=== PATIENT | female | born 1980 | race Caucasian/White ===

== ENCOUNTER 2016-12-21 04:59 | Outpatient (CLI) | payer OTHER ==
[2016-12-21 06:01] LABS: HEMATOCRIT 29.4 % (34.6-47.8); WHITE BLOOD COUNT 11.6 x10^3/uL (3.4-10)
== END 2016-12-21 06:59 | disposition home or self-care (01) ==
LOC: LDOP 04:59
PROVIDERS: ATTEND Obstetrics & Gynecology
DX: O26.892 Other specified pregnancy related conditions, second trimester (principal); O62.9 Abnormality of forces of labor, unspecified; R10.9 Unspecified abdominal pain; Z3A.27 27 weeks gestation of pregnancy
CPT/HCPCS: 36415; 59025; 81003; 85025; 87086; 99211; G0463

== ENCOUNTER 2017-02-09 12:46 | Observation (INO) | payer OTHER ==
[~2017-02-09] VITALS: Ht 165.1 cm; Wt 78.0 kg
[2017-02-09] MEDS ORDERED: D5%-LACTATED RINGERS 1,000 ML IV SCH ×4 (13:30→21:00)
[2017-02-09] MEDS ORDERED: ONDANSETRON 2MG/ML, 2ML IVPush PRN (13:30)
[2017-02-09] MEDS ORDERED: ONDANSETRON 2MG/ML, 2ML ONE (13:31)
[2017-02-09] MEDS ORDERED: PLEASE ENTER HEIGHT AND WEIGHT MC SCH (14:00)
[2017-02-09] MEDS: LACTATED RINGERS 1,000 ML IV SCH ×2 (14:30→18:34)
[2017-02-09 15:32] VITALS: BP 111/62
[2017-02-09] MEDS ORDERED: PROMETHAZINE 25 MG/ML, 1ML ONE (16:34)
[2017-02-09] MEDS ORDERED: LACTATED RINGERS 1,000 ML IV SCH (17:00)
[2017-02-09] MEDS ORDERED: PROMETHAZINE 25 MG/ML, 1ML IM ONE (17:00)
[2017-02-09 19:18] LABS: HEMATOCRIT 23.9 % (34.6-47.8); HEMOGLOBIN 7.9 g/dL (11.7-16.4); WHITE BLOOD COUNT 8.1 x10^3/uL (3.4-10)
[2017-02-09 19:30] LABS: ASPARTATE AMINO TRANSFERASE 8 U/L (15-37); BLOOD UREA NITROGEN 7 mg/dL (7-18)
[2017-02-10 06:00] LABS: HEMATOCRIT 23.8 % (34.6-47.8); WHITE BLOOD COUNT 6.9 x10^3/uL (3.4-10)
[2017-02-10 06:23] LABS: ASPARTATE AMINO TRANSFERASE 10 U/L (15-37); BLOOD UREA NITROGEN 8 mg/dL (7-18); TOTAL IRON BINDING CAPACITY 523 mcg/dL (250-450)
[2017-02-10 09:26] VITALS: BP 95/51
[2017-02-10] MEDS ORDERED: D5%-LACTATED RINGERS 1,000 ML IV SCH (13:30)
== END 2017-02-10 10:00 | disposition home or self-care (01) ==
LOC: LDOP 12:46 → LDIP 16:41
PROVIDERS: ADMIT Obstetrics & Gynecology; ATTEND Obstetrics & Gynecology
DX: O21.2 Late vomiting of pregnancy (principal); O76 Abnormality in fetal heart rate and rhythm complicating labor and delivery; O99.013 Anemia complicating pregnancy, third trimester; Z3A.34 34 weeks gestation of pregnancy
CPT/HCPCS: 36415; 59025; 76819; 80053; 81003; 82009; 83540; 83550; 85025; 87086; 96361; 96374; G0378; J2405; J7120; J7121

== ENCOUNTER 2017-03-12 05:42 | Inpatient (IN) | payer OTHER ==
[~2017-03-12] VITALS: Ht 162.6 cm; Wt 78.0 kg
[2017-03-12] MEDS ORDERED: LACTATED RINGERS 1,000 ML IV SCH ×3 (05:43→07:35)
[2017-03-12] MEDS ORDERED: OXYTOCIN 30U/ 0.9% NaCL 500ML 500 ML IV SCH (05:43)
[2017-03-12 05:44] VITALS: BP 99/65
[2017-03-12] MEDS ORDERED: PREN-3 PO (05:51)
[2017-03-12] MEDS ORDERED: RANI75TA12 PO (05:52)
[2017-03-12] MEDS ORDERED: IRON1TAB60 PO (05:52)
[2017-03-12] MEDS ORDERED: LACTATED RINGERS 1,000 ML IVBOLUS ONE (06:00)
[2017-03-12] MEDS ORDERED: METOCLOPRAMIDE 5 MG/ML, 2ML IV ONE (06:00)
[2017-03-12] MEDS ORDERED: PNEUMOCOCCAL 23 VACCINE IM-VACC ONE (06:00)
[2017-03-12] MEDS ORDERED: SODIUM CITRATE/CITRIC ACID 30 ML UDC PO ONE (06:00)
[2017-03-12 06:20] LABS: MEAN CORPUSCULAR HEMOGLOBIN 28.4 pg (27.0-34.8); MEAN CORPUSCULAR HGB CONC 33.2 g/dL (32.4-35.8); MEAN CORPUSCULAR VOLUME 85.4 fL (80-100); MEAN PLATELET VOLUME 6.6 fL (7.4-10.4); PLATELET COUNT 194 x10^3/uL (130-400); RED BLOOD COUNT 4.11 x10^6/uL (3.82-5.3); RED CELL DISTRIBUTION WIDTH 24.3 % (9.6-15.2)
[2017-03-12 06:40] LABS: BASOPHILS # (AUTO) 0.04 x10^3/uL (0-0.1); BASOPHILS % (AUTO) 1 % (0-1); EOSINOPHILS # (AUTO) 0.08 x10^3/uL (0-0.4); EOSINOPHILS % (AUTO) 1 % (1-7); LYMPHOCYTES # (AUTO) 1.57 x10^3/uL (1-3.4); LYMPHOCYTES % (AUTO) 17 % (22-44); MD SCAN; MONOCYTES # (AUTO) 0.46 x10^3/uL (0.2-0.8); MONOCYTES % (AUTO) 5 % (2-9); NEUTROPHILS # (AUTO) 7.14 x10^3/uL (1.8-6.8); NEUTROPHILS % (AUTO) 77 % (42-75)
[2017-03-12] MEDS ORDERED: morphine SULFATE/PF 0.5 MG/ML, 10ML ONE (07:04)
[2017-03-12] MEDS ORDERED: OXYTOCIN 30U/ 0.9% NaCL 500ML 0 ML ONE (07:11)
[2017-03-12] MEDS ORDERED: morphine SULFATE 10 MG/ML, 1ML IVPush PRN (08:00)
[2017-03-12] MEDS ORDERED: MISOPROSTOL 200 MCG TABLET PR PRN (08:00)
[2017-03-12] MEDS ORDERED: ONDANSETRON 2MG/ML, 2ML IV PRN (08:00)
[2017-03-12] MEDS ORDERED: EPHEDRINE 50 MG/ML, 1ML ONE (08:42)
[2017-03-12] MEDS ORDERED: CEFAZOLIN 1,000 MG ONE (08:42)
[2017-03-12] MEDS ORDERED: PHENYLEPHRINE 10 MG/ML ONE (08:42)
[2017-03-12] MEDS ORDERED: ONDANSETRON 2MG/ML, 2ML ONE (08:42)
[2017-03-12] MEDS ORDERED: WATER-INJECTION,STERILE 10 ML IV ONE (08:42)
[2017-03-12] MEDS ORDERED: OXYTOCIN 10 UNITS/ML, 1ML ONE (08:42)
[2017-03-12] MEDS: PRENATAL VIT/IRON/FA 1 EACH TABLET PO SCH (09:00)
[2017-03-12] MEDS: LACTATED RINGERS 1,000 ML IV SCH ×2 (09:12→16:26)
[2017-03-12] MEDS: OXYTOCIN 30U/ 0.9% NaCL 500ML 500 ML IV SCH ×2 (09:16→16:58)
[2017-03-12] MEDS ORDERED: KETOROLAC 30 MG/1 ML ONE (09:23)
[2017-03-12] MEDS: KETOROLAC 30 MG/1 ML IV PRN ×3 (09:25→22:22)
[2017-03-12 11:07] VITALS: BP 162/95
[2017-03-12] MEDS ORDERED: HYDROmorphone 1 MG/ML, 1ML IV ONE (13:30)
[2017-03-12] MEDS ORDERED: DIPHENHYDRAMINE 50 MG/ML, 1ML IVPush PRN (13:30)
[2017-03-12] MEDS ORDERED: FLU VACC QS2017-18 (36MOS+) UP/PF 0.5 ML IM-VACC ONE ×2 (14:00→17:00)
[2017-03-12 16:20] VITALS: BP 113/71
[2017-03-12 17:43] LABS: ANISOCYTOSIS 1+; BASOPHILS # (AUTO) 0.01 x10^3/uL (0-0.1); BASOPHILS % (AUTO) 0 % (0-1); EOSINOPHILS # (AUTO) 0.04 x10^3/uL (0-0.4); EOSINOPHILS % (AUTO) 0 % (1-7); LYMPHOCYTES # (AUTO) 1.45 x10^3/uL (1-3.4); LYMPHOCYTES % (AUTO) 14 % (22-44); MD MORPH REVIEW ONLY; MEAN CORPUSCULAR HEMOGLOBIN 28.4 pg (27.0-34.8); MEAN CORPUSCULAR HGB CONC 32.9 g/dL (32.4-35.8); MEAN CORPUSCULAR VOLUME 86.3 fL (80-100); MEAN PLATELET VOLUME 6.3 fL (7.4-10.4); MICROCYTOSIS 1+; MONOCYTES % (AUTO) 4 % (2-9); NEUTROPHILS # (AUTO) 8.19 x10^3/uL (1.8-6.8); NEUTROPHILS % (AUTO) 81 % (42-75); PLATELET COUNT 151 x10^3/uL (130-400); POLYCHROMASIA 1+; RED BLOOD COUNT 3.84 x10^6/uL (3.82-5.3); RED CELL DISTRIBUTION WIDTH 24.8 % (9.6-15.2)
[2017-03-12 17:44] LABS: <PLATELET ESTIMATE> ADEQUATE; <PLT MORPHOLOGY> NORMAL PLT MORPH
[2017-03-12 20:15] VITALS: BP 93/51
[2017-03-12] MEDS: OXYcodone/APAP 5/325MG TABLET PO PRN (22:22)
[2017-03-13 00:30] VITALS: BP 88/51
[2017-03-13] MEDS: LACTATED RINGERS 1,000 ML IV SCH ×2 (03:35→03:54)
[2017-03-13] MEDS: OXYTOCIN 30U/ 0.9% NaCL 500ML 500 ML IV SCH ×2 (03:35→03:54)
[2017-03-13 04:15] VITALS: BP 94/57
[2017-03-13] MEDS: KETOROLAC 30 MG/1 ML IV PRN (04:19)
[2017-03-13] MEDS: OXYcodone/APAP 5/325MG TABLET PO PRN ×4 (04:19→20:25)
[2017-03-13 07:46] VITALS: BP 97/53
[2017-03-13] MEDS: PRENATAL VIT/IRON/FA 1 EACH TABLET PO SCH (10:02)
[2017-03-13] MEDS: DOCUSATE 100 MG CAPSULE PO PRN ×2 (10:03→20:25)
[2017-03-13] MEDS: IBUPROFEN 600 MG TABLET PO PRN ×3 (10:03→22:21)
[2017-03-13] MEDS ORDERED: SIMETHICONE 80 MG CHEW TAB ONE (15:50)
[2017-03-13] MEDS ORDERED: SIMETHICONE 80 MG CHEW TAB PO PRN (16:00)
[2017-03-13] MEDS ORDERED: DIPH,PERTUSS(ACELL),TET VAC/PF NC IM-VACC ONE (19:30)
[2017-03-13 19:50] VITALS: BP 100/63
[2017-03-14] MEDS: OXYcodone/APAP 5/325MG TABLET PO PRN ×4 (00:27→12:53)
[2017-03-14] MEDS: IBUPROFEN 600 MG TABLET PO PRN ×2 (04:31→12:53)
[2017-03-14 08:00] VITALS: BP 102/66
[2017-03-14] MEDS: PRENATAL VIT/IRON/FA 1 EACH TABLET PO SCH (08:07)
[2017-03-14] MEDS: DOCUSATE 100 MG CAPSULE PO PRN (08:07)
[2017-03-14] MEDS ORDERED: OXYC-302 PO (13:32)
[2017-03-14] MEDS ORDERED: IBUP-1222 PO (13:32)
== END 2017-03-14 15:10 | disposition home or self-care (01) | DRG 766 ==
LOC: LDIP 05:42 → 2NW 10:56
PROVIDERS: ADMIT Obstetrics & Gynecology; ATTEND Obstetrics & Gynecology
PROC: 10D00Z1 Extraction of Products of Conception, Low, Open Approach (ICD-10-PCS; principal; 2017-03-12)
PROC: 0UB70ZZ Excision of Bilateral Fallopian Tubes, Open Approach (ICD-10-PCS; 2017-03-12)
DX: O34.211 Maternal care for low transverse scar from previous cesarean delivery (principal); Z30.2 Encounter for sterilization; Z37.0 Single live birth; Z3A.39 39 weeks gestation of pregnancy; Z83.3 Family history of diabetes mellitus; Z88.2 Allergy status to sulfonamides
CPT/HCPCS: 36415; 85025; 86850; 86900; 88302; 90686; 90715; J0690; J1170; J1885; J2274; J2405; J1200; J2370; J2590; J2765; J7120